=== PATIENT | male | born 1935 | race Caucasian/White ===

== ENCOUNTER 2017-10-14 14:17 | Emergency (ER) | payer MEDICARE, OTHER ==
[2017-10-14 15:19] VITALS: BP 168/76; PULSE 60; O2SAT 96
--- NOTE | 2017-10-14 15:34 | ERPHSYRPT ---
- History of Present Illness Time Seen by Provider: 10/14/17 15:23 Source: patient Exam Limitations: no limitations Patient Subjective Stated Complaint: pt reports he had a bug bite on his left cheeck-reports swelling and worsening with time Triage Nursing Assessment: pt pink warm and [id number] amount of swelling and redness noted-no drainage present Physician History: The patient is an 82-year-old male complaining of worsening redness, swelling, and tenderness to his left cheek that began 3-4 days ago. He thinks he may have been bitten by a spider but is unsure. [place] the does not recall any specific incident of injury. His past medical history is significant for hypertension, high cholesterol, CABG, GERD, and cardiac pacemaker. Timing/Duration: day(s) (4), gradual onset, worse Quality: other (swelling and redness) Severity: moderate Location: face (left cheek) Possible Causes: no cause identified Associated Symptoms: swelling/mass/lumps Allergies/Adverse Reactions: codeine Adverse Reaction (Verified 10/14/17 14:32) Nausea Home Medications: Clopidogrel Bisulfate [Clopidogrel] 75 mg PO DAILY 10/14/17 [History] Isosorbide Mononitrate [Isosorbide Mononitrate ER] 60 mg PO DAILY 10/14/17 [ History] Losartan Potassium 25 mg PO DAILY 10/14/17 [History] Pantoprazole Sodium 40 mg PO DAILY 10/14/17 [History] Simvastatin 20 mg PO DAILY 10/14/17 [History] Hx Tetanus, Diphtheria Vaccination/Date Given: No Hx Influenza Vaccination/Date Given: Yes Hx Pneumococcal Vaccination/Date Given: Yes Immunizations Up to Date: Yes - Review of Systems Constitutional: No Fever, No Chills Eyes: No Symptoms Ears, Nose, & Throat: No Symptoms Respiratory: No Cough, No Dyspnea Cardiac: No Chest Pain, No Edema, No Syncope Abdominal/Gastrointestinal: No Abdominal Pain, No Nausea, No Vomiting, No Diarrhea Genitourinary Symptoms: No Dysuria Musculoskeletal: No Back Pain, No Neck Pain Skin: Rash Neurological: No Dizziness, No Focal Weakness, No Sensory Changes Psychological: No Symptoms Endocrine: No Symptoms Hematologic/Lymphatic: No Symptoms Immunological/Allergic: No Symptoms All Other Systems: Reviewed and Negative - Past Medical History Pertinent Past Medical History: Yes Neurological History: Stroke Cardiac History: Coronary Artery Disease, High Cholesterol, Hypertension, Myocardial Infarction ([place]) Musculoskeletal History: Arthritis Psycho-Social History: Depression - Past Surgical History Past Surgical History: Yes Cardiac: CABG, Cardiac Stent, Pacemaker Musculoskeletal: Amputation Other Surgical History: Femoral Filter for dvt - Social History Smoking Status: Never smoker Exposure to second hand smoke: No Drug Use: none Patient Lives Alone: Yes - Nursing Vital Signs Nursing Vital Signs: Initial Vital Signs Temperature 98.3 F 10/14/17 14:29 Pulse Rate 83 10/14/17 14:29 Respiratory Rate 18 10/14/17 14:29 Blood Pressure 194/105 10/14/17 14:29 O2 Sat by Pulse Oximetry 99 10/14/17 14:29 Pain Scale Pain Intensity 0 - Physical Exam General Appearance: no apparent distress, alert Eye Exam: PERRL/EOMI, eyes nml inspection Ears, Nose, Throat Exam: normal ENT inspection, pharynx normal, moist mucous membranes Neck Exam: normal inspection, non-tender, supple, full range of motion Respiratory Exam: normal breath sounds, lungs clear, No respiratory distress Cardiovascular Exam: regular rate/rhythm, normal heart sounds Gastrointestinal/Abdomen Exam: soft, mass, No tenderness Rectal Exam: not done Back Exam: normal inspection, normal range of motion, No CVA tenderness, No vertebral tenderness Extremity Exam: normal inspection, normal range of motion Neurologic Exam: alert, oriented x 3, cooperative, normal mood/affect, sensation nml, No motor deficits Skin Exam: other (Examination of the left cheek and left side of the face: There is moderate redness overlying the left cheek and extending up to the inferior aspect of the left orbit. There is swelling over the entire area of redness. There is mild tenderness in the central portion of the redness. There are 2 or 3 small specks of further discoloration in the center.) SpO2 Interpretation: normal SpO2: 96 Oxygen Delivery: Room Air - Progress Progress: unchanged Counseled pt/family regarding: diagnosis, need for follow-up - Departure Time of Disposition: 15:38 Departure Disposition: Home Clinical Impression: Cellulitis Condition: Stable Critical Care Time: No Referrals: BRYANT TRIMBLE [Primary Care Provider] - Additional Instructions: You have an area on her left face that is cellulitis or a skin infection. Take Augmentin 875 2 times a day for 10 days. Take prednisone 40 mg once a day for 5 days. If your condition worsens over the next 2 days, please see your primary medical care doctor. Prescriptions: Amoxicillin/Potassium Clav [Augmentin 875-125 Tablet] 875 mg PO BID #20 tablet Prednisone 20 mg [Deltasone 20 mg] 2 tab PO DAILY #10 tablet
== END 2017-10-14 15:50 | disposition home or self-care (01) ==
LOC: ED 14:17
DX: L03.211 Cellulitis of face (principal); Z79.899 Other long term (current) drug therapy
CPT/HCPCS: 99283

== ENCOUNTER 2021-10-02 10:07 | Emergency (ER) | payer MEDICARE, OTHER ==
--- NOTE | 2021-10-02 10:10 | ERPHSYRPT ---
- History of Present Illness Time Seen by Provider: 10/02/21 10:10 Source: patient, family Exam Limitations: no limitations Physician History: This is an 86-year-old white male who is typically very active. 2 days ago he bent over to pick something up off the ground and felt sharp pain. He did not fall and has not suffered any traumatic injury. Patient has a history of hypertension, CVA, gastroesophageal reflux disease, hyperlipidemia, coronary artery disease with pacemaker placed. Patient also has had a CABG performed and cardiac stent placed. He has no chest pain he has no shortness of breath. Timing/Duration: day(s), intermittent Method of Injury: bending, twisted Quality: aching Back Pain Location: lumbar spine, paraspinous muscles Severity of Pain-Max: moderate Severity of Pain-Current: mild (To moderate with not moving) Modifying Factors: Improves With: movement Associated Symptoms: lower back pain, muscle spasms, No urinary incontinence, No loss of bowel control, No problems urinating, No numbness in legs/feet, No sensory/motor loss, No tingling in legs/feet Previous symptoms: same symptoms as today (In the distant past) Allergies/Adverse Reactions: codeine Adverse Reaction (Verified 10/02/21 10:24) Nausea Home Medications: Clopidogrel Bisulfate [Clopidogrel] 75 mg PO DAILY 10/14/17 [History] Isosorbide Mononitrate [Isosorbide Mononitrate ER] 60 mg PO DAILY 10/14/17 [History] Losartan Potassium 25 mg PO DAILY 10/14/17 [History] Pantoprazole Sodium 40 mg PO DAILY 10/14/17 [History] Simvastatin 20 mg PO DAILY 10/14/17 [History] Hx Tetanus, Diphtheria Vaccination/Date Given: No Hx Influenza Vaccination/Date Given: Yes Hx Pneumococcal Vaccination/Date Given: Yes Travel Risk - International Travel Have you traveled outside of the country in past 3 weeks: No - Coronavirus Screening Are you exhibiting any of the following symptoms?: No Close contact with a COVID-19 positive Pt in past 14-21 Days: No - Review of Systems Constitutional: No Symptoms Eyes: No Symptoms Ears, Nose, & Throat: No Symptoms Respiratory: No Symptoms Cardiac: No Symptoms Abdominal/Gastrointestinal: No Symptoms Genitourinary Symptoms: No Symptoms Musculoskeletal: Back Pain Skin: No Symptoms Neurological: No Symptoms Psychological: No Symptoms Endocrine: No Symptoms Hematologic/Lymphatic: No Symptoms Immunological/Allergic: No Symptoms All Other Systems: Reviewed and Negative - Past Medical History Pertinent Past Medical History: Yes Neurological History: Stroke Cardiac History: Coronary Artery Disease, High Cholesterol, Hypertension, Myocardial Infarction ([place]) Musculoskeletal History: Arthritis Psycho-Social History: Depression - Past Surgical History Past Surgical History: Yes Cardiac: CABG, Cardiac Stent, Pacemaker Musculoskeletal: Amputation Other Surgical History: Femoral Filter for dvt - Social History Smoking Status: Never smoker Exposure to second hand smoke: No Drug Use: none Patient Lives Alone: Yes - Nursing Vital Signs Nursing Vital Signs: Initial Vital Signs Temperature 97.0 F 10/02/21 10:19 Pulse Rate 72 10/02/21 10:19 Respiratory Rate 18 10/02/21 10:19 Blood Pressure 184/78 10/02/21 10:19 O2 Sat by Pulse Oximetry 97 10/02/21 10:19 Pain Scale Pain Intensity [Back] 5 Pain Intensity 5 - Physical Exam General Appearance: no apparent distress, alert, anxiety Eye Exam: PERRL/EOMI, eyes nml inspection Ears, Nose, Throat Exam: normal ENT inspection, moist mucous membranes Neck Exam: normal inspection, non-tender, supple, full range of motion Respiratory Exam: airway intact, No chest tenderness, No respiratory distress Gastrointestinal Exam: No tenderness Rectal Exam: not done Back Exam: normal inspection, decreased range of motion, muscle spasm, No vertebral tenderness Extremity Exam: normal inspection, normal range of motion, pelvis stable Neurologic Exam: alert, oriented x 3, cooperative, electric lineman II-XII nml as tested, normal mood/affect, nml cerebellar function, nml station & gait, sensation nml Skin Exam: normal color, warm, dry Lymphatic Exam: No adenopathy SpO2 Interpretation: normal O2 Delivery: Room Air - Course Nursing assessment & vital signs reviewed: Yes - Progress Progress: improved, pain not gone completely Progress Note: 10/02/21 10:45 Patient and patient's friend both told me that he has had hydrocodone in the past without any side effects or issues. Counseled pt/family regarding: diagnosis, need for follow-up - Departure Departure Disposition: Home Clinical Impression: Acute exacerbation of chronic low back pain Condition: Stable Critical Care Time: No Referrals: BRYANT TRIMBLE [Primary Care Provider] - Follow up/PCP as directed Additional Instructions: Hold on Tylenol and ibuprofen. May resume once you have completed your prescription medication for your back pain. Follow-up with your primary care provider for persistent pain issues and for further evaluation and management. Prescriptions: Hydrocodone/APAP 5/325 [[place] 5/325 mg] 1 each PO Q12H PRN PRN #6 tablet MDD 2 PRN Reason: Pain Prednisone 10 mg [Deltasone 10 mg] 10 mg PO TID #12 tablet Orphenadrine Citrate 100 mg [Norflex 100 MG Tablet] 100 mg PO BID #10 tab
[2021-10-02] MEDS ORDERED: NORCO 5/325 MG PO ONE (10:38)
[2021-10-02] MEDS ORDERED: solu-MEDROL 125 MG, Sterile H2O 10 ml 2 ML IM ONE ×2 (10:38)
[2021-10-02] MEDS ORDERED: Norflex 60 MG/2 ML IM ONE (10:38)
[2021-10-02] MEDS ORDERED: Sterile H2O 10 ml IJ ONE (10:43)
[2021-10-02] MEDS ORDERED: Norflex 60 MG/2 ML ONE (10:43)
[2021-10-02] MEDS ORDERED: NORCO 5/325 MG ONE (10:43)
[2021-10-02] MEDS ORDERED: solu-MEDROL ONE (10:43)
[2021-10-02 11:20] VITALS: PULSE 67; O2SAT 98
[2021-10-02 11:48] VITALS: BP 167/95
== END 2021-10-02 11:48 | disposition home or self-care (01) ==
LOC: ED 10:07
DX: G89.29 Other chronic pain (principal); M54.50 Low back pain, unspecified; X50.0XXA Overexertion from strenuous movement or load, initial encounter; I10 Essential (primary) hypertension; E78.5 Hyperlipidemia, unspecified; Z79.02 Long term (current) use of antithrombotics/antiplatelets; Z79.899 Other long term (current) drug therapy; Z79.891 Long term (current) use of opiate analgesic; Z79.52 Long term (current) use of systemic steroids
CPT/HCPCS: 96372; 99284; J2360; J2930; A9270-GY